=== PATIENT | female | born 1945 | race Caucasian/White ===

== ENCOUNTER 2019-01-05 12:40 | Emergency (ER) | payer MEDICARE, BC ==
[~2019-01-05] VITALS: Ht 162.6 cm; Wt 71.7 kg
[~2019-01-05 12:40] MED LIST: ALBU3IS INH; ALBU90OI INH; ALBUIS INH; ASPI81CH PO; AZIT250 PO; FLUSAL2505 INH; Flonase 0.05% N16 GM; GUAI600T33 PO; PRED10 PO; TIOT18 INH
[2019-01-05 13:25] LABS: BASOPHILS ABSOLUTE AUTO 0.08 K/mm3 (0.00-0.23); BASOPHILS PERCENT AUTO 1 % (0-2); EOSINOPHILS ABSOLUTE AUTO 0.08 K/mm3 (0.00-0.68); EOSINOPHILS PERCENT AUTO 1 % (0-6); Hematocrit 43.9 % (33.0-51.0); Hemoglobin 13.8 g/dL (11.5-16.0); IMMATURE GRAN ABSOLUTE AUTO 0.01 K/mm3 (0.00-0.10); IMMATURE GRAN PERCENT AUTO 0 % (0-1); LYMPHOCYTES ABSOLUTE AUTO 1.19 K/mm3 (0.84-5.20); LYMPHOCYTES PERCENT AUTO 16 % (21-46); MONOCYTES ABSOLUTE AUTO 0.68 K/mm3 (0.16-1.47); MONOCYTES PERCENT AUTO 9 % (4-13); Mean Corpuscular HGB 30.6 pg (26.0-34.0); Mean Corpuscular HGB Conc 31.4 g/dL (31.5-36.5); Mean Corpuscular Volume 97 fL (80-100); Mean Platelet Volume 11.1 fL (9.1-12.4); NEUTROPHILS ABSOLUTE AUTO 5.42 K/mm3 (1.96-9.15); NEUTROPHILS PERCENT AUTO 73 % (41-73); Platelet Count 283 K/mm3 (150-400); RDW Standard Deviation 46.9 fL (35.1-46.3); Red Blood Cell Count 4.51 M/mm3 (3.80-5.20); White Blood Cell Count 7.46 K/mm3 (4.00-11.30)
[2019-01-05 13:57] LABS: Troponin I <0.015 ng/mL (0.000-0.040)
[2019-01-05 14:05] LABS: Alanine Aminotransfer (ALT/SGP 19 U/L (12-78); Albumin/Globulin Ratio 1.1 (0.8-1.8); Alk Phos 67 U/L (50-136); Anion Gap 4 mmol/L (6-16); Aspartate Aminotrans (AST/SGOT 16 U/L (12-37); Bilirubin, Total 0.6 mg/dL (0.1-1.0); Blood Urea Nitrogen 14 mg/dL (8-24); Bun/Creatinine Ratio 15.8 (12.0-20.0); CO2, Blood 34 mmol/L (21-32); Calcium, Blood 9.3 mg/dL (8.5-10.1); Chloride, Blood 101 mmol/L (98-108); Creatinine, Blood 0.89 mg/dL (0.40-1.00); Globulin, Blood 3.5 g/dL (2.2-4.0); Glomerular Filtration Rate >60 (60-); Glucose, Blood 106 mg/dL (70-99); Potassium, Blood 3.6 mmol/L (3.5-5.5); Sodium, Blood 139 mmol/L (136-145); Total Protein, Blood 7.5 g/dL (6.4-8.2)
[2019-01-05 14:52] LABS: Source, Urine Clean Catch
[2019-01-05 14:56] LABS: Bilirubin, Urine Neg (Neg); Blood, Urine Neg (Neg); Glucose Qualitative, Urine Neg (Neg); Ketones, Urine Neg (Neg); Leukocyte Esterase, Urine 1+ (Neg); Nitrite, Urine Neg (Neg); Protein, Urine Neg (Neg); Urobilinogen, Urine NORM (Normal)
[2019-01-05 15:01] LABS: Appearance, Urine Clear (Clear); Color, Urine Yellow (P-Yellow)
[2019-01-05 15:02] LABS: Bacteria Few /hpf; Red Blood Cells, Urine 0-2 /hpf (0-2); Squamous Epithelial Cells Few /hpf (Few)
== END 2019-01-05 17:21 | disposition home or self-care (01) ==
LOC: ER 12:40
PROVIDERS: Emergency Medicine
DX: R00.0 Tachycardia, unspecified (principal); Z79.899 Other long term (current) drug therapy; Z79.82 Long term (current) use of aspirin; J44.9 Chronic obstructive pulmonary disease, unspecified
CPT/HCPCS: 36415; 71046; 80053; 81001; 84484; 85025; 87086; 93005; 93010; 99285-25

== ENCOUNTER → 2020-12-03 | Outpatient (CLI) | payer MEDICARE, BC ==
[~2020-12-03] MED LIST changes: +ADVAIR HFA 230-28 GM; +ALBU90OI6 INH; +Ativan1 MG PO; +Caltrate-600 W1 EACH PO; +FLUTICASONE-SA1 EAC2 INH; +LEVSOD25 PO; +LOSA50 PO
[2020-12-03 16:08] LABS: Appearance, Urine Clear (Clear); Bilirubin, Urine Neg (Neg); Blood, Urine Neg (Neg); Color, Urine Yellow (P-Yellow); Glucose Qualitative, Urine Neg (Neg); Ketones, Urine Neg (Neg); Leukocyte Esterase, Urine 1+ (Neg); Nitrite, Urine Neg (Neg); Protein, Urine Neg (Neg); Specific Gravity, Urine 1.015 (1.003-1.022); Urobilinogen, Urine NORM (Normal)
[2020-12-03 16:19] LABS: Bacteria Mod /hpf; Red Blood Cells, Urine 0-2 /hpf (0-2); Squamous Epithelial Cells Few /hpf (Few)
== END | disposition home or self-care (01) ==
LOC: LAB SHORT 14:30 → LAB 14:30
PROVIDERS: Internal Medicine
DX: N39.0 Urinary tract infection, site not specified (principal)
CPT/HCPCS: 81001; 87086

== ENCOUNTER → 2021-01-21 | Outpatient (CLI) | payer MEDICARE, BC | END | disposition home or self-care (01) | LOC: LAB SHORT 19:07 → LAB EV 19:07 | DX: N39.0 Urinary tract infection, site not specified (principal) | CPT/HCPCS: 87086 ==

== ENCOUNTER 2023-01-15 09:56 | Inpatient (IN) | payer MEDICARE, OTHER, BC ==
[~2023-01-15] VITALS: Ht 162.6 cm; Wt 64.4 kg
[2023-01-15 10:22] LABS: BASOPHILS ABSOLUTE AUTO 0.06 K/mm3 (0.00-0.23); BASOPHILS PERCENT AUTO 1 % (0-2); EOSINOPHILS ABSOLUTE AUTO 0.06 K/mm3 (0.00-0.68); EOSINOPHILS PERCENT AUTO 1 % (0-6); Hematocrit 40.6 % (33.0-51.0); IMMATURE GRAN ABSOLUTE AUTO 0.01 K/mm3 (0.00-0.10); IMMATURE GRAN PERCENT AUTO 0 % (0-1); LYMPHOCYTES ABSOLUTE AUTO 1.93 K/mm3 (0.84-5.20); LYMPHOCYTES PERCENT AUTO 24 % (21-46); MONOCYTES ABSOLUTE AUTO 0.73 K/mm3 (0.16-1.47); MONOCYTES PERCENT AUTO 9 % (4-13); Mean Corpuscular HGB 30.5 pg (26.0-34.0); Mean Corpuscular Volume 95 fL (80-100); Mean Platelet Volume 10.6 fL (9.1-12.4); NEUTROPHILS ABSOLUTE AUTO 5.21 K/mm3 (1.96-9.15); NEUTROPHILS PERCENT AUTO 65 % (41-73); Platelet Count 240 K/mm3 (150-400); RDW Coefficient Variation 13.3 % (11.7-14.2); RDW Standard Deviation 46.6 fL (35.1-46.3); Red Blood Cell Count 4.26 M/mm3 (3.80-5.20)
[2023-01-15 10:45] LABS: Albumin, Blood 3.5 g/dL (3.4-5.0); Bilirubin, Total 0.5 mg/dL (0.1-1.0); Bun/Creatinine Ratio 30.7 (12.0-20.0); Creatinine, Blood 0.68 mg/dL (0.40-1.00); Globulin, Blood 3.5 g/dL (2.2-4.0); Potassium, Blood 3.8 mmol/L (3.5-5.5)
[2023-01-15 12:28] LABS: Influenza A, PCR NEGATIVE (NEGATIVE); Influenza B, PCR NEGATIVE (NEGATIVE); Resp Syncytial Virus, PCR NEGATIVE (NEGATIVE); SARS-Cov-2 (COVID-19) PCR, MMC NEGATIVE (NEGATIVE)
[2023-01-15 15:15] LABS: International Normalized Ratio 0.96; Prothrombin Time Results 10.1 Sec (9.7-11.5)
[2023-01-15 16:32] LABS: Anti-Xa UFH, PHA Monitoring <0.10 IU/mL
--- NOTE | 2023-01-15 18:22 | NUR ---
ADMISSION/ END OF SHIFT NOTE. PT ADMITTED FROM ED INTO ROOM [id number]. PT AND FAMILY WERE ORIENTED TO ROOM AND CALL LIGHT SYSTEM. HEP GTT WAS STARTED PER PHARMACY ORDERS. LAST TROP 451, CONTINUING TO TREND. PT DENIES CP OR SOB CURRENTLY. PT WAS EDUCATED ON PT AND NEB TREATMENTS. PT TO BE NPO AT MIDNIGHT. PT IS ABLE TO MAKE NEEDS KNOWN, CALL LIGHT IS WITHIN REACH.
[2023-01-15 21:27] VITALS: BP 131/70
[2023-01-15 23:45] VITALS: BP 131/69
[2023-01-16 04:34] VITALS: BP 127/62
[2023-01-16 05:24] LABS: BASOPHILS ABSOLUTE AUTO 0.01 K/mm3 (0.00-0.23); BASOPHILS PERCENT AUTO 0 % (0-2); EOSINOPHILS PERCENT AUTO 0 % (0-6); Hematocrit 39.3 % (33.0-51.0); Hemoglobin 12.8 g/dL (11.5-16.0); IMMATURE GRAN ABSOLUTE AUTO 0.01 K/mm3 (0.00-0.10); IMMATURE GRAN PERCENT AUTO 0 % (0-1); LYMPHOCYTES ABSOLUTE AUTO 0.64 K/mm3 (0.84-5.20); LYMPHOCYTES PERCENT AUTO 12 % (21-46); MONOCYTES ABSOLUTE AUTO 0.12 K/mm3 (0.16-1.47); MONOCYTES PERCENT AUTO 2 % (4-13); Mean Corpuscular HGB 31.1 pg (26.0-34.0); Mean Corpuscular HGB Conc 32.6 g/dL (31.5-36.5); Mean Corpuscular Volume 95 fL (80-100); NEUTROPHILS ABSOLUTE AUTO 4.38 K/mm3 (1.96-9.15); NEUTROPHILS PERCENT AUTO 85 % (41-73); Platelet Count 226 K/mm3 (150-400); RDW Coefficient Variation 13.3 % (11.7-14.2); RDW Standard Deviation 46.6 fL (35.1-46.3); Red Blood Cell Count 4.12 M/mm3 (3.80-5.20); White Blood Cell Count 5.16 K/mm3 (4.00-11.30)
[2023-01-16 05:53] LABS: Alanine Aminotransfer (ALT/SGP 19 U/L (12-78); Albumin, Blood 3.4 g/dL (3.4-5.0); Alk Phos 47 U/L (50-136); Anion Gap 0 mmol/L (6-16); Aspartate Aminotrans (AST/SGOT 22 U/L (12-37); Bilirubin, Total 0.4 mg/dL (0.1-1.0); Blood Urea Nitrogen 17 mg/dL (8-24); Bun/Creatinine Ratio 30.7 (12.0-20.0); CHOL/HDL RATIO 1.7; CO2, Blood 33 mmol/L (21-32); Calcium, Blood 8.8 mg/dL (8.5-10.1); Chloride, Blood 101 mmol/L (98-108); Cholesterol 168 mg/dL (50-200); Creatinine, Blood 0.55 mg/dL (0.40-1.00); Globulin, Blood 3.4 g/dL (2.2-4.0); Glomerular Filtration Rate 95 (60-); Glucose, Blood 138 mg/dL (70-99); HDL Cholesterol 99 mg/dL (>39); LDL/HDL RATIO 0.6; Low Density Lipoprotein Chol 62 mg/dL (0-110); Potassium, Blood 4.1 mmol/L (3.5-5.5); Sodium, Blood 134 mmol/L (136-145); Total Protein, Blood 6.8 g/dL (6.4-8.2); Triglycerides 36 mg/dL (30-160); Very Low Density Lipoprot Chol 7 mg/dL (6-32)
--- NOTE | 2023-01-16 06:02 | NUR ---
Assumed care of pt at 1900. A/Ox4, cooperative with care and calls appropiately. Maintains above 92% on 4L NC but does desat into low 80's with talking or exerting self, recovers within 1-2 minutes. LS clear on top and dim at bases. SR on tele 70's, denies any CP/pressure, VSS. Will report to dayshift RN.
[2023-01-16 07:40] VITALS: BP 126/69
--- NOTE | 2023-01-16 11:40 | NUR ---
CARE ASSUMPTION This RN assumed care at 0700. vital signs stable. tele sinus rhythm 70s. spo2 >90% on 4l nc. patient is alert and oriented x4. neuro is intact. patient reports no chest pain/pressure. patient reports no pain. patient reports no shortness of breath. skin is clean dry and intact. patient is contient of bowels and urine. see shift assessment further detials. Md Wood and medical team in to see patient this AM. Heparin stopped and discontinued per MD order. Discussed plan of care. Plan of care is up to date. patient started on lasix today. see orders. Patient is a one person assist to bedside comode. Plan of care is up to date and call light within reach. Family and updated on plan and verbalized understanding.
[2023-01-16 11:48] VITALS: BP 133/73
[2023-01-16 15:53] VITALS: BP 128/58
--- NOTE | 2023-01-16 18:17 | NUR ---
SHIFT SUMMARY Patient neuro is intact and remains unchaged. vital sings remained stable throughout this RN's shift. Patient uses call light appropriately to make needs known. Patient has remained chest pain/pressure free. Patient has remained pain free. Patient calls when she feel short of breaht for a breathing treatment. Assessment remains the same. Plan is to diuersis patient, and patient started on lasix per orders. See orders. no acute changes this shift. call light within reach, bed in lowest position, and is at bedside.
[2023-01-16 21:15] VITALS: BP 133/71
[2023-01-16 23:36] VITALS: BP 149/68
[2023-01-17 04:54] VITALS: BP 134/66
--- NOTE | 2023-01-17 05:06 | NUR ---
Patient was able to sleep most of this shift. C/o mild headache, medicated per emar with good relief. Able to titrate O2 down to 3L this shift and maintains sats above 92%. Still some CORONA, although less than previous night. SR 70's on tele, denies CP/pressure, VSS. Very good urine output of clear/yellow urine - please see I/O's. No acute changes, will report to dayshift RN.
[2023-01-17 07:17] VITALS: BP 130/70
[2023-01-17 08:42] LABS: Bun/Creatinine Ratio 40.6 (12.0-20.0); Calcium, Blood 8.8 mg/dL (8.5-10.1); Creatinine, Blood 0.62 mg/dL (0.40-1.00); Potassium, Blood 3.9 mmol/L (3.5-5.5)
[2023-01-17 11:20] VITALS: BP 121/80
[2023-01-17 14:31] VITALS: BP 133/84
--- NOTE | 2023-01-17 14:37 | NUR ---
SHIFT SUMMARY/TRANSFER PT UP TO MEDICAL FLOOR @ APPROX 1430. PT A/O X4, PLEASANT AND COOPERATIVE WITH CARE. PT SINUS RHYTHM ON TELE, WITH RATE IN THE 70'S. PT C/O SOB WITH ANY EXERTION. SPO2 IS >92% ON 2LPM AT REST. PT WILL DROP TO HIGH 80'S WITH ACTIVITY BUT RECOVERS QUICKLY. LUNGS ARE MILDLY COARSE T/O. SHE HAS AN OCCASIONAL PRODUCTIVE COUGH AND BEGAN USING A FLUTTER VALVE TODAY. PT C/O OF STRONG SMELLING URINE. A URINALYSIS WAS ORDERED. OVERALL, NO ACUTE CHANGES WITH PT THIS SHIFT.
[2023-01-17 14:45] LABS: Source, Urine Clean Catch
[2023-01-17 14:51] LABS: Appearance, Urine Clear (Clear); Bilirubin, Urine Neg (Neg); Blood, Urine Neg (Neg); Color, Urine Yellow (P-Yellow); Glucose Qualitative, Urine Neg (Neg); Ketones, Urine Neg (Neg); Leukocyte Esterase, Urine Neg (Neg); Nitrite, Urine Neg (Neg); Protein, Urine Neg (Neg); Specific Gravity, Urine 1.015 (1.003-1.022); Urobilinogen, Urine NORM (Normal)
--- NOTE | 2023-01-17 15:23 | NUR ---
PT ARRIVED TO ROOM AT 1445 ON 2.5L O2. PT IS A ONE ASSIST FROM CHAIR TO BED. PT GETS SOB WITH MOVEMENT. AOX4 AND COOPERATIVE OF CARE AT THIS TIME. BIOX WAS SET UP IN ROOM AND CALL LIGHT PLACED WITHIN REACH WILL CONTINUE TO MONITOR.
[2023-01-17 16:14] VITALS: BP 135/77
--- NOTE | 2023-01-17 16:30 | NUR ---
PT HAS HAD NO ACUTE CHANGES AOX4 AND COOPERATIVE OF CARE. CALL LIGHT IS WITHIN REACH WILL CONTINUE TO MONITOR.
[2023-01-17 19:34] VITALS: BP 139/67
[2023-01-18 03:55] VITALS: BP 120/53
--- NOTE | 2023-01-18 04:31 | NUR ---
SHIFT SUMMARY PATIENT HAD NO ACUTE CHANGES. AXOX 4 AND SBA TO BR. ON 2.5 L O2 NC AND 2L O2 BASELINE. RT IN FOR BREATHING TX. DENIES CHEST PAIN AND N/V. PIV REMAINS INTACT. IV SOLU-MEDROL GIVEN PER EMAR. VSS/AFEBRILE. TELE MONITOR NSR @ 88. COOPERATIVE WITH CARE. CALL LIGHT IN REACH. BED IN LOWEST POSITION. WILL CONTINUE TO MONITOR UNTIL DAY SHIFT NURSE ASSUMES CARE.
[2023-01-18 05:27] LABS: Bun/Creatinine Ratio 42.8 (12.0-20.0); Calcium, Blood 8.5 mg/dL (8.5-10.1); Creatinine, Blood 0.68 mg/dL (0.40-1.00); Magnesium, Blood 2.5 mg/dL (1.6-2.4); Potassium, Blood 3.9 mmol/L (3.5-5.5)
[2023-01-18 07:23] VITALS: BP 144/77
[2023-01-18 14:57] VITALS: BP 128/84
--- NOTE | 2023-01-18 17:10 | NUR ---
PT HAS HAD NO ACUTE CHANGES AOX4 AND COOPERATIVE OF CARE. PT STILL SEEMS TO HAVE ANXIETY ABOUT O2 NEEDS. PT WAS TURNED DOWN TO 2L AT THIS TIME AND HAS BEEN LOW 90s. PT WORKED WELL WITH PHYSICAL THERAPY AND WAS ABLE TO GO FOR A WALK IN [place] WITH HER. PT HAS CALL LIGHT WITHIN REACH AND IS ABLE TO MAKE NEEDS KNOWN. PT PREFERS TO HAVE SOMEONE WALK WITH HER TO RESTROOM. NO DISTRESS NOTED AT THIS TIME WILL CONTINUE TO MONITOR.
[2023-01-18 19:17] VITALS: BP 148/72
[2023-01-19 04:21] VITALS: BP 124/66
--- NOTE | 2023-01-19 04:26 | NUR ---
SHIFT SUMMARY PATIENT HAD NO ACUTE CHANGES. AXO X4 AND SBA TO BR. ON 2L O2 NC AND BASELINE. PIV REMAINS INTACT. IV SOLU MEDROL GIVEN PER EMAR. SPOUSE PRESENT FOR A FEW HOURS. PATIENT ANXIOUS WHEN AWAKE. TELE MONITOR NSR @ 83. DENIES CHEST PAIN AND N/V. COOPERATIVE WITH CARE. CALL LIGHT IN REACH. BED IN LOWEST POSITION. WILL CONTINUE TO MONITOR UNTIL DAY SHIFT NURSE ASSUMES CARE.
[2023-01-19 05:02] LABS: BASOPHILS ABSOLUTE AUTO 0.01 K/mm3 (0.00-0.23); BASOPHILS PERCENT AUTO 0 % (0-2); EOSINOPHILS PERCENT AUTO 0 % (0-6); Hemoglobin 12.8 g/dL (11.5-16.0); IMMATURE GRAN ABSOLUTE AUTO 0.03 K/mm3 (0.00-0.10); IMMATURE GRAN PERCENT AUTO 0 % (0-1); LYMPHOCYTES ABSOLUTE AUTO 0.64 K/mm3 (0.84-5.20); LYMPHOCYTES PERCENT AUTO 6 % (21-46); MONOCYTES ABSOLUTE AUTO 0.48 K/mm3 (0.16-1.47); MONOCYTES PERCENT AUTO 5 % (4-13); Mean Corpuscular HGB 30.3 pg (26.0-34.0); Mean Corpuscular Volume 95 fL (80-100); NEUTROPHILS ABSOLUTE AUTO 8.81 K/mm3 (1.96-9.15); NEUTROPHILS PERCENT AUTO 88 % (41-73); Platelet Count 250 K/mm3 (150-400); RDW Coefficient Variation 13.4 % (11.7-14.2); RDW Standard Deviation 46.9 fL (35.1-46.3); Red Blood Cell Count 4.22 M/mm3 (3.80-5.20); White Blood Cell Count 9.97 K/mm3 (4.00-11.30)
[2023-01-19 05:36] LABS: Anion Gap Unable to Calculate mmol/L (6-16); Blood Urea Nitrogen 24 mg/dL (8-24); Bun/Creatinine Ratio 39.3 (12.0-20.0); CO2, Blood 37 mmol/L (21-32); Calcium, Blood 8.6 mg/dL (8.5-10.1); Chloride, Blood 99 mmol/L (98-108); Creatinine, Blood 0.61 mg/dL (0.40-1.00); Glomerular Filtration Rate 93 (60-); Glucose, Blood 142 mg/dL (70-99); Potassium, Blood 3.9 mmol/L (3.5-5.5); Sodium, Blood 134 mmol/L (136-145)
[2023-01-19 08:03] VITALS: BP 132/71
[2023-01-19] MEDS ORDERED: ASPI81CH PO (12:49)
[2023-01-19] MEDS ORDERED: ATOR40TA PO (12:49)
[2023-01-19] MEDS ORDERED: FURO20 PO (12:49)
[2023-01-19] MEDS ORDERED: PRED20 PO (12:50)
[2023-01-19] MEDS ORDERED: AZIT500 PO (12:50)
[2023-01-19] MEDS ORDERED: IPRAT-ALBUT 0.5-3 ML INH (12:51)
--- NOTE | 2023-01-19 14:57 | NUR ---
DISCHARGE SUMMARY EDUCATION PACKET PROVED TO PATIENT AND . ALL QUESTIONS ANSWERED. IV REMOVED. SIGNATURES OBTAINED AT 1415. PATIENT LEFT FLOOR IN WHEELCHAIR WITH COUNSELING CASE MANAGERMAURICE AT 1425. LEAVING PRIVATE VEHICLE WITH .
--- NOTE | 2023-01-19 15:37 | NUR ---
THIS SPORT INTERN HAS REVIEWED AND AGREES WITH NOTES AND ASSESSMENTS BY OLAYINKA SAKSHI.
== END 2023-01-19 14:22 | disposition home or self-care (01) | DRG 280 ==
LOC: ER 09:56 → PCU 14:08 → MEDS 14:08 → PCU 15:55 → MEDS 01-17 14:27
PROVIDERS: Emergency Medicine; Family Medicine; Pharmacist; Student in an Organized Health Care Education/Training Program; ADMIT Hospitalist
DX: I11.0 Hypertensive heart disease with heart failure (principal); J96.21 Acute and chronic respiratory failure with hypoxia; I21.A1 Myocardial infarction type 2; E87.3 Alkalosis; E87.1 Hypo-osmolality and hyponatremia; J44.1 Chronic obstructive pulmonary disease with (acute) exacerbation; I50.32 Chronic diastolic (congestive) heart failure; Z20.822 Contact with and (suspected) exposure to COVID-19; E03.9 Hypothyroidism, unspecified; M81.0 Age-related osteoporosis without current pathological fracture; R91.1 Solitary pulmonary nodule; F41.1 Generalized anxiety disorder; I50.810 Right heart failure, unspecified; I27.20 Pulmonary hypertension, unspecified; Z87.891 Personal history of nicotine dependence; Z99.81 Dependence on supplemental oxygen; Z79.51 Long term (current) use of inhaled steroids; Z79.890 Hormone replacement therapy; Z79.899 Other long term (current) drug therapy
CPT/HCPCS: 0241U; 36415; 71046; 71260; 80048; 80053; 80061; 81003; 83036; 83735; 83880; 84484; 85025; 85520; 85610; 85730; 93005; 93010; 93306; 94640; 94664; 94760; 94762; 96374; 97110; 97162; 97530; 99285-25; A9270; J1100; J1644; J1650; J1940; J2405; J2930; Q9967

== ENCOUNTER 2023-05-08 14:39 | Inpatient (IN) | payer MEDICARE, OTHER, BC ==
[~2023-05-08] VITALS: Ht 162.6 cm; Wt 60.9 kg
[~2023-05-08 14:39] MED LIST changes: +ATOR40TA PO; +AZIT500 PO; +FURO20 PO; +IPRAT-ALBUT 0.5-3 ML INH; +PRED20 PO
[2023-05-08 15:08] LABS: BASOPHILS ABSOLUTE AUTO 0.05 K/mm3 (0.00-0.23); BASOPHILS PERCENT AUTO 0 % (0-2); EOSINOPHILS PERCENT AUTO 0 % (0-6); Hematocrit 41.7 % (33.0-51.0); Hemoglobin 13.5 g/dL (11.5-16.0); IMMATURE GRAN ABSOLUTE AUTO 0.06 K/mm3 (0.00-0.10); IMMATURE GRAN PERCENT AUTO 0 % (0-1); LYMPHOCYTES ABSOLUTE AUTO 0.82 K/mm3 (0.84-5.20); LYMPHOCYTES PERCENT AUTO 5 % (21-46); MONOCYTES ABSOLUTE AUTO 1.02 K/mm3 (0.16-1.47); MONOCYTES PERCENT AUTO 7 % (4-13); Mean Corpuscular HGB 30.4 pg (26.0-34.0); Mean Corpuscular HGB Conc 32.4 g/dL (31.5-36.5); Mean Corpuscular Volume 94 fL (80-100); NEUTROPHILS ABSOLUTE AUTO 13.22 K/mm3 (1.96-9.15); NEUTROPHILS PERCENT AUTO 87 % (41-73); Platelet Count 223 K/mm3 (150-400); RDW Coefficient Variation 13.3 % (11.7-14.2); RDW Standard Deviation 45.9 fL (35.1-46.3); Red Blood Cell Count 4.44 M/mm3 (3.80-5.20); White Blood Cell Count 15.17 K/mm3 (4.00-11.30)
[2023-05-08 15:27] LABS: Albumin/Globulin Ratio 1.1 (0.8-1.8); Bilirubin, Total 0.8 mg/dL (0.1-1.0); Bun/Creatinine Ratio 26.5 (12.0-20.0); Calcium, Blood 8.8 mg/dL (8.5-10.1); Creatinine, Blood 0.6 mg/dL (0.40-1.00); Globulin, Blood 3.5 g/dL (2.2-4.0); Potassium, Blood 3.8 mmol/L (3.5-5.5); Total Protein, Blood 7.5 g/dL (6.4-8.2)
[2023-05-08 17:41] LABS: Base Excess Venous 8.6 mmol/L; Bicarbonate Venous 31.1 mmol/L (24.0-30.0); PCO2 Venous 44.3 mmHg (38-42); pH Blood Venous 7.47 (7.34-7.37)
[2023-05-08 18:29] LABS: Influenza A, PCR NEGATIVE (NEGATIVE); Influenza B, PCR NEGATIVE (NEGATIVE); Resp Syncytial Virus, PCR NEGATIVE (NEGATIVE); SARS-Cov-2 (COVID-19) PCR, MMC NEGATIVE (NEGATIVE)
[2023-05-08] MEDS ORDERED: GUAI600T33 PO (20:42)
[2023-05-08] MEDS ORDERED: FLUT1DIS5 INH (20:44)
--- NOTE | 2023-05-08 23:26 | NUR ---
PT CHART REVIEWED FOR ADMIT
[2023-05-08] MEDS ORDERED: AMLODIPINE BES2.5 MG PO (23:29)
[2023-05-09 00:29] LABS: Hematocrit 40.1 % (33.0-51.0); Hemoglobin 13.2 g/dL (11.5-16.0); Mean Corpuscular HGB 30.7 pg (26.0-34.0); Mean Corpuscular HGB Conc 32.9 g/dL (31.5-36.5); Mean Corpuscular Volume 93 fL (80-100); Mean Platelet Volume 11.8 fL (9.1-12.4); Platelet Count 222 K/mm3 (150-400); RDW Coefficient Variation 13.5 % (11.7-14.2); RDW Standard Deviation 46.5 fL (35.1-46.3); White Blood Cell Count 15.03 K/mm3 (4.00-11.30)
[2023-05-09 00:39] LABS: Bun/Creatinine Ratio 22.1 (12.0-20.0); Calcium, Blood 8.5 mg/dL (8.5-10.1); Creatinine, Blood 0.59 mg/dL (0.40-1.00); Magnesium, Blood 1.9 mg/dL (1.6-2.4); Potassium, Blood 3.7 mmol/L (3.5-5.5)
[2023-05-09 01:30] VITALS: BP 130/65
--- NOTE | 2023-05-09 02:10 | NUR ---
LATE ENTRY/ER ADMIT 0100: RECEIVED REPORT FROM NET WEB DEVELOPER. 0120: RECEIVED PT FROM ER VIA GURNEY TRANSFER. PT PLACED SELF IN BED, MADE COMFORTABLE, ORIENTED TO ROOM & UNIT ROUTINE. PT A&O X 4, PLEASANT & COOPERATIVE WITH ALL CARE. IS ON 2 L'S VIA N/C SATS >90%, NO DYSPNEA AT THIS TIME. PT ABLE TO TALK IN FULL SENTENCES WITHOUT SOB. IVF'S INFUSING AT 125/HR. ASSESSMENT DONE. PT RESTING COMFORTABLY, RESP EVEN & UNLABORED. BED IN LOW POSITION, CALL LIGHT WITHIN REACH.
--- NOTE | 2023-05-09 05:35 | NUR ---
SHIFT SUMMARY HAS RESTED QUIETLY SINCE ADMISSION WITH EYES CLOSED, RESP EVEN & UNLABORED. REMAINS ON 2 L'S O2 VIA NC. SATS >90%. NO COMPLAINTS, DENIES PAIN & SOB. IS PLEASANT & COOPERATIVE WITH ALL CARE. BED IN LOW POSITION, CALL LIGHT WITHIN REACH.
[2023-05-09 07:15] VITALS: BP 107/49
[2023-05-09 07:18] VITALS: BP 116/55
[2023-05-09] MEDS ORDERED: Mucinex600 MG PO (08:54)
[2023-05-09] MEDS ORDERED: FLUTICASONE-SA1 EAC1 INH (08:56)
[2023-05-09 13:55] VITALS: BP 117/48
--- NOTE | 2023-05-09 20:01 | NUR ---
SHIFT SUMMARY NO ACUTE EVENTS DURING SHIFT. PATIENT UP TO BATHROOM AD BOB WITH 2LPM O2. BED IN LOW POSITION, CALL LIGHT IN REACH. PATIENT CALLS APPROPRIATELY.
[2023-05-09 20:06] VITALS: BP 102/74
--- NOTE | 2023-05-10 01:14 | NUR ---
RN NOTE MS CANSECO WAS EDUCATED RE IGNITION SOURCES AND RISK FOR INJURY WHEN OXYGEN IS IN USE. SHE VERBALISED UNDERSTANDING AND DENIED HAVING IGNITION SOURCES. REASSESSMENT ON NURSING ROUNDS. ON 2L N/C OXYGEN AT BASELINE WHICH CONTINUES ON 2-2.5L. PT EDUCATED IN HER CARE AND INTERESTED IN ALL EDUCATION AND INFORMATION INVOLVING HER CARE. UP INDEPENDENTLY TO THE BATHROOM, STEADY GAIT. BED LOW, CALL LIGHT IN REACH.
[2023-05-10 04:28] VITALS: BP 125/64
--- NOTE | 2023-05-10 04:52 | NUR ---
SHIFT SUMMARY MS CANSECO WAS DIDN'T SLEEP MUCH LAST NIGHT, BUT SAID SHE IS "DOING FINE", NO C/O PAIN, SAID THAT SHE HAD MINIMAL SOB GETTING UP TO THE BATHROOM OVERNIGHT. NO INCREASED OXYGEN REQUIREMENTS. BED LOW, CALL LIGHT IN REACH.
[2023-05-10 05:00] LABS: Hematocrit 35.4 % (33.0-51.0); Hemoglobin 11.3 g/dL (11.5-16.0); Mean Corpuscular HGB 30.4 pg (26.0-34.0); Mean Corpuscular HGB Conc 31.9 g/dL (31.5-36.5); Mean Corpuscular Volume 95 fL (80-100); Mean Platelet Volume 11.5 fL (9.1-12.4); Platelet Count 207 K/mm3 (150-400); RDW Coefficient Variation 13.8 % (11.7-14.2); RDW Standard Deviation 48.4 fL (35.1-46.3); Red Blood Cell Count 3.72 M/mm3 (3.80-5.20); White Blood Cell Count 10.32 K/mm3 (4.00-11.30)
[2023-05-10 05:25] LABS: Albumin, Blood 3.1 g/dL (3.4-5.0); Bilirubin, Total 0.2 mg/dL (0.1-1.0); Bun/Creatinine Ratio 24.5 (12.0-20.0); Calcium, Blood 8.3 mg/dL (8.5-10.1); Creatinine, Blood 0.7 mg/dL (0.40-1.00); Globulin, Blood 3.1 g/dL (2.2-4.0); Potassium, Blood 3.9 mmol/L (3.5-5.5); Total Protein, Blood 6.2 g/dL (6.4-8.2)
[2023-05-10 07:49] VITALS: BP 110/58
[2023-05-10 15:49] VITALS: BP 130/60
--- NOTE | 2023-05-10 19:59 | NUR ---
PT PLEASANT TODAY. LUNGS TIGHT, BUT CLEAR, DID TURN UP TO 3L O2 THIS AFT DESATTED AFTER RUN TO BATHROOM. TURNED BACK DOWN THIS LEO TO 2L. PT ABIMAEL WELL. IS CONCERNED IT CAUSES HER HEADACHE WHEN GETS TOO MUCH O2, AND HS BEEN CHECKING REGULARLY AND IS UP AT 98-99 %. PLEASED TO GET TURNED DOWN. NO OTHER CONCERNS NOTED. BED IN LOW POSITOIN, CALL LITE IN REACH, CALLS APPORP
[2023-05-10 20:03] VITALS: BP 123/58
[2023-05-10 22:02] LABS: Adenovirus Not Detected (NOT DETECT); Bordetella pertussis Not Detected (NOT DETECT); Chlamydophila pneumoniae Not Detected (NOT DETECT); Coronavirus 229E Not Detected (NOT DETECT); Coronavirus HKU1 Not Detected (NOT DETECT); Coronavirus NL63 Not Detected (NOT DETECT); Coronavirus OC43 Not Detected (NOT DETECT); Human Metapneumovirus Not Detected (NOT DETECT); Human Rhinovirus/Enterovirus Not Detected (NOT DETECT); Influenza A/2009-H1 Not Detected (NOT DETECT); Influenza A/H1 Not Detected (NOT DETECT); Influenza A/H3 Not Detected (NOT DETECT); Influenza B Not Detected (NOT DETECT); Mycoplasma pneumoniae Not Detected (NOT DETECT); Parainfluenza Virus 1 Not Detected (NOT DETECT); Parainfluenza Virus 2 Not Detected (NOT DETECT); Parainfluenza Virus 3 Not Detected (NOT DETECT); Parainfluenza Virus 4 Not Detected (NOT DETECT); Respiratory Syncytial Virus Not Detected (NOT DETECT); SARS-Cov-2 (COVID-19), BioFire Not Detected (NOT DETECT)
[2023-05-10 23:50] LABS: Source, Urine Clean Catch
[2023-05-10 23:53] LABS: Bilirubin, Urine Neg (Neg); Blood, Urine Neg (Neg); Glucose Qualitative, Urine 1+ (Neg); Ketones, Urine Neg (Neg); Leukocyte Esterase, Urine Neg (Neg); Nitrite, Urine Neg (Neg); Protein, Urine 1+ (Neg); Specific Gravity, Urine 1.015 (1.003-1.022); Urobilinogen, Urine NORM (Normal)
[2023-05-10 23:55] LABS: Appearance, Urine Clear (Clear); Color, Urine Yellow (P-Yellow)
[2023-05-11 05:25] VITALS: BP 128/66
[2023-05-11 05:48] LABS: Hematocrit 37.3 % (33.0-51.0); Hemoglobin 11.5 g/dL (11.5-16.0); Mean Corpuscular HGB 30.3 pg (26.0-34.0); Mean Corpuscular HGB Conc 30.8 g/dL (31.5-36.5); Mean Corpuscular Volume 98 fL (80-100); Mean Platelet Volume 11.6 fL (9.1-12.4); Platelet Count 235 K/mm3 (150-400); RDW Coefficient Variation 13.9 % (11.7-14.2); RDW Standard Deviation 50.4 fL (35.1-46.3); Red Blood Cell Count 3.79 M/mm3 (3.80-5.20); White Blood Cell Count 8.21 K/mm3 (4.00-11.30)
[2023-05-11 06:14] LABS: Creatinine, Blood 0.6 mg/dL (0.40-1.00); Potassium, Blood 4.2 mmol/L (3.5-5.5)
[2023-05-11 06:28] LABS: BASOPHILS PERCENT MAN 0 % (0-2); EOSINOPHILS PERCENT MAN 0 % (0-6); LYMPHOCYTES ABSOLUTE MAN 0.32 K/mm3 (0.84-5.20); LYMPHOCYTES PERCENT MAN 4 % (21-46); MONOCYTES ABSOLUTE MAN 0.16 K/mm3 (0.16-1.47); MONOCYTES PERCENT MAN 2 % (4-13); NEUTROPHILS ABSOLUTE MAN 7.71 K/mm3 (1.96-9.15); SEG NEUTROPHILS PERCENT MAN 94 % (41-73); TOTAL CELLS COUNTED 100
--- NOTE | 2023-05-11 06:35 | NUR ---
SHIFT SUMMARY PT C/O HEADACHE STILL PRESENT DUE TO HER O2 BEING TURNED UP PREVIOUSLY DURING THE DAY. PRN TYLENOL GIVEN PER REQUEST WITH RESOLUTION OF HEADACHE. NO OTHER EVENTS OVERNIGHT. Q1H FIRE SAFETY CHECKS COMPLETED, NO IGNITION SOURCES FOUND
[2023-05-11 07:31] VITALS: BP 122/61
[2023-05-11] MEDS ORDERED: AZIT500 PO (12:24)
[2023-05-11] MEDS ORDERED: PRED20 PO (12:39)
--- NOTE | 2023-05-11 13:29 | NUR ---
DISCHARGE REVIEWED WITH PT AND SPOUSE. VERBALIZED UNDERSTANDING MEDS AND INST. IV PULLED BY AIDE, NO TELE. PT WHEELED TO DOOR AT 1327
== END 2023-05-11 14:40 | disposition home or self-care (01) | DRG 193 ==
LOC: ER 14:39 → MEDS 14:40 → ENPENDDIS 05-11 10:48 → MEDS 05-11 14:40
PROVIDERS: Hospitalist; Internal Medicine; Nurse Practitioner Acute Care; Physician Assistant; Student in an Organized Health Care Education/Training Program; ADMIT Internal Medicine
DX: J18.9 Pneumonia, unspecified organism (principal); J96.01 Acute respiratory failure with hypoxia; J44.1 Chronic obstructive pulmonary disease with (acute) exacerbation; E87.3 Alkalosis; R65.10 Systemic inflammatory response syndrome (SIRS) of non-infectious origin without acute organ dysfunction; J44.0 Chronic obstructive pulmonary disease with (acute) lower respiratory infection; I10 Essential (primary) hypertension; E03.9 Hypothyroidism, unspecified; M81.0 Age-related osteoporosis without current pathological fracture; Z20.822 Contact with and (suspected) exposure to COVID-19; F41.1 Generalized anxiety disorder; F17.210 Nicotine dependence, cigarettes, uncomplicated; Z79.51 Long term (current) use of inhaled steroids; Z79.890 Hormone replacement therapy; Z79.899 Other long term (current) drug therapy; Z79.82 Long term (current) use of aspirin; Z79.2 Long term (current) use of antibiotics
CPT/HCPCS: 0202U; 0241U; 36415; 71046; 80048; 80053; 82803; 83605; 83735; 83880; 84145; 84484; 85025; 85027; 87040; 93005; 93010; 94640; 94664; 94760; 96361; 96365; 96366; 96367; 96372; 96375; 96376; 99285-25; A9270; G0378; J0456; J0696; J1650; J2930; J7050; J7120

== ENCOUNTER 2023-07-31 10:51 | Emergency (ER) | payer MEDICARE, BC, OTHER ==
[~2023-07-31] VITALS: Ht 162.6 cm; Wt 61.2 kg
[~2023-07-31 10:51] MED LIST changes: +AMLODIPINE BES2.5 MG PO; +FLUT1DIS5 INH; +FLUTICASONE-SA1 EAC1 INH; +Mucinex600 MG PO
[2023-07-31 12:02] LABS: BASOPHILS ABSOLUTE AUTO 0.04 K/mm3 (0.00-0.23); BASOPHILS PERCENT AUTO 1 % (0-2); EOSINOPHILS ABSOLUTE AUTO 0.01 K/mm3 (0.00-0.68); EOSINOPHILS PERCENT AUTO 0 % (0-6); Hematocrit 39.3 % (33.0-51.0); Hemoglobin 12.4 g/dL (11.5-16.0); IMMATURE GRAN ABSOLUTE AUTO 0.01 K/mm3 (0.00-0.10); IMMATURE GRAN PERCENT AUTO 0 % (0-1); LYMPHOCYTES ABSOLUTE AUTO 0.78 K/mm3 (0.84-5.20); LYMPHOCYTES PERCENT AUTO 9 % (21-46); MONOCYTES ABSOLUTE AUTO 0.42 K/mm3 (0.16-1.47); MONOCYTES PERCENT AUTO 5 % (4-13); Mean Corpuscular HGB 30.4 pg (26.0-34.0); Mean Corpuscular HGB Conc 31.6 g/dL (31.5-36.5); Mean Corpuscular Volume 96 fL (80-100); Mean Platelet Volume 11.3 fL (9.1-12.4); NEUTROPHILS ABSOLUTE AUTO 7.21 K/mm3 (1.96-9.15); NEUTROPHILS PERCENT AUTO 85 % (41-73); Platelet Count 203 K/mm3 (150-400); RDW Coefficient Variation 13.3 % (11.7-14.2); RDW Standard Deviation 47.8 fL (35.1-46.3); Red Blood Cell Count 4.08 M/mm3 (3.80-5.20); White Blood Cell Count 8.47 K/mm3 (4.00-11.30)
[2023-07-31 12:15] VITALS: BP 128/60
[2023-07-31 12:22] LABS: Albumin, Blood 3.5 g/dL (3.4-5.0); Albumin/Globulin Ratio 1.2 (0.8-1.8); Bilirubin, Total 0.7 mg/dL (0.1-1.0); Calcium, Blood 8.6 mg/dL (8.5-10.1); Creatinine, Blood 0.7 mg/dL (0.40-1.00); Potassium, Blood 3.9 mmol/L (3.5-5.5); Total Protein, Blood 6.5 g/dL (6.4-8.2)
[2023-07-31 12:38] LABS: Influenza A, PCR NEGATIVE (NEGATIVE); Influenza B, PCR NEGATIVE (NEGATIVE); Resp Syncytial Virus, PCR NEGATIVE (NEGATIVE); SARS-Cov-2 (COVID-19) PCR, MMC NEGATIVE (NEGATIVE)
[2023-07-31] MEDS ORDERED: PRED20 PO (13:40)
[2023-07-31] MEDS ORDERED: DOXY100 PO (13:40)
== END 2023-07-31 14:00 | disposition home or self-care (01) ==
LOC: ER 10:51
PROVIDERS: Emergency Medicine
DX: J20.9 Acute bronchitis, unspecified (principal); J44.1 Chronic obstructive pulmonary disease with (acute) exacerbation; I10 Essential (primary) hypertension; E03.9 Hypothyroidism, unspecified; Z20.822 Contact with and (suspected) exposure to COVID-19; Z88.8 Allergy status to other drugs, medicaments and biological substances; Z79.82 Long term (current) use of aspirin; Z79.52 Long term (current) use of systemic steroids; Z79.899 Other long term (current) drug therapy; Z87.891 Personal history of nicotine dependence
CPT/HCPCS: 0241U; 71046; 80053; 84145; 84484; 85025; 93005; 93010; 94640; 94664; 99284-25; A9270

== ENCOUNTER 2023-09-07 15:15 | Emergency (ER) | payer MEDICARE, BC, OTHER ==
[~2023-09-07] VITALS: Ht 162.6 cm; Wt 60.8 kg
[~2023-09-07 15:15] MED LIST changes: +DOXY100 PO
[2023-09-07 15:43] VITALS: BP 173/87
[2023-09-07] MEDS ORDERED: Norco 5-325 Ta1 EACH PO (16:59)
== END 2023-09-07 17:38 | disposition home or self-care (01) ==
LOC: ER 15:15
DX: M54.2 Cervicalgia (principal); M79.601 Pain in right arm; I10 Essential (primary) hypertension; E03.9 Hypothyroidism, unspecified; M81.0 Age-related osteoporosis without current pathological fracture; J44.9 Chronic obstructive pulmonary disease, unspecified; Z99.81 Dependence on supplemental oxygen; Z87.891 Personal history of nicotine dependence; Z79.52 Long term (current) use of systemic steroids; Z79.2 Long term (current) use of antibiotics; Z79.82 Long term (current) use of aspirin; Z79.51 Long term (current) use of inhaled steroids; Z79.899 Other long term (current) drug therapy
CPT/HCPCS: 72040; 99283-25; A9270

== ENCOUNTER 2023-10-10 22:20 | Emergency (ER) | payer MEDICARE, BC, OTHER ==
[~2023-10-10] VITALS: Ht 162.6 cm; Wt 59.0 kg
[~2023-10-10 22:20] MED LIST changes: +Norco 5-325 Ta1 EACH PO
[2023-10-10 23:12] LABS: BASOPHILS ABSOLUTE AUTO 0.05 K/mm3 (0.00-0.23); BASOPHILS PERCENT AUTO 0 % (0-2); EOSINOPHILS PERCENT AUTO 0 % (0-6); Hematocrit 39.6 % (33.0-51.0); Hemoglobin 12.8 g/dL (11.5-16.0); IMMATURE GRAN ABSOLUTE AUTO 0.03 K/mm3 (0.00-0.10); IMMATURE GRAN PERCENT AUTO 0 % (0-1); LYMPHOCYTES ABSOLUTE AUTO 1.97 K/mm3 (0.84-5.20); LYMPHOCYTES PERCENT AUTO 17 % (21-46); MONOCYTES ABSOLUTE AUTO 1.04 K/mm3 (0.16-1.47); MONOCYTES PERCENT AUTO 9 % (4-13); Mean Corpuscular HGB 30.7 pg (26.0-34.0); Mean Corpuscular HGB Conc 32.3 g/dL (31.5-36.5); Mean Corpuscular Volume 95 fL (80-100); Mean Platelet Volume 11.2 fL (9.1-12.4); NEUTROPHILS ABSOLUTE AUTO 8.22 K/mm3 (1.96-9.15); NEUTROPHILS PERCENT AUTO 73 % (41-73); Platelet Count 237 K/mm3 (150-400); RDW Coefficient Variation 13.8 % (11.7-14.2); RDW Standard Deviation 48.5 fL (35.1-46.3); Red Blood Cell Count 4.17 M/mm3 (3.80-5.20); White Blood Cell Count 11.31 K/mm3 (4.00-11.30)
[2023-10-10 23:24] LABS: Albumin, Blood 3.7 g/dL (3.4-5.0); Albumin/Globulin Ratio 1.1 (0.8-1.8); Bilirubin, Total 0.8 mg/dL (0.1-1.0); Calcium, Blood 8.9 mg/dL (8.5-10.1); Creatinine, Blood 0.6 mg/dL (0.40-1.00); Globulin, Blood 3.3 g/dL (2.2-4.0); Potassium, Blood 3.4 mmol/L (3.5-5.5)
[2023-10-10 23:36] VITALS: BP 142/66
[2023-10-11] LABS: Influenza A, PCR NEGATIVE (NEGATIVE); Influenza B, PCR NEGATIVE (NEGATIVE); Resp Syncytial Virus, PCR NEGATIVE (NEGATIVE); SARS-Cov-2 (COVID-19) PCR, MMC NEGATIVE (NEGATIVE)
[2023-10-11] MEDS ORDERED: HYDR1TAB94 PO (00:13)
[2023-10-11] MEDS ORDERED: DOC250 PO (00:13)
[2023-10-11] MEDS ORDERED: PRED20 PO (00:13)
[2023-10-11] MEDS ORDERED: LIDO700A20 TOP (00:13)
[2023-10-11] MEDS ORDERED: AZIT250 PO (00:35)
== END 2023-10-11 01:10 | disposition home or self-care (01) ==
LOC: ER 22:20
PROVIDERS: Emergency Medicine
DX: J44.1 Chronic obstructive pulmonary disease with (acute) exacerbation (principal); S16.1XXA Strain of muscle, fascia and tendon at neck level, initial encounter; G44.209 Tension-type headache, unspecified, not intractable; Z79.899 Other long term (current) drug therapy; Z79.82 Long term (current) use of aspirin; Z79.52 Long term (current) use of systemic steroids; I10 Essential (primary) hypertension; E03.9 Hypothyroidism, unspecified; Z87.891 Personal history of nicotine dependence
CPT/HCPCS: 0241U; 71045; 80053; 85025; 93005; 93010; 94640; 94664; 96374; 99285-25; A9270; J1885

== ENCOUNTER → 2024-03-22 | Outpatient (CLI) | payer MEDICARE, BC, OTHER ==
[~2024-03-22] MED LIST changes: +ATOR20 PO; +ATROVENT HFA12.9 GM INH; +CELE100 PO; +DOC250 PO; +HYDHCL25 PO; +HYDR1TAB94 PO; +HYDROCODONE-AC1 EA19 PO; +LIDO700A20 TOP; +ROFLUMILAST500 MCG PO
[2024-03-22 14:22] LABS: Source, Urine Clean Catch
[2024-03-22 15:48] LABS: Bacteria Rare /hpf; Red Blood Cells, Urine Not Seen /hpf (0-2); Squamous Epithelial Cells Few /hpf (Few); White Blood Cells, Urine 0-2 /hpf (0-5)
[2024-03-23 11:35] LABS: Stool Occult Blood Guaiac 1 Neg (Neg)
== END | disposition home or self-care (01) ==
LOC: LAB SHORT 14:15 → LAB 14:15
PROVIDERS: Internal Medicine
DX: R63.4 Abnormal weight loss (principal)
CPT/HCPCS: 81015; 82272

== ENCOUNTER 2024-09-25 15:48 | Inpatient (IN) | payer MEDICARE, BC, OTHER ==
[~2024-09-25] VITALS: Ht 162.6 cm; Wt 53.1 kg
[2024-09-25] MEDS ORDERED: Diltiazem HCl 5 MG / ML 5ML Vial IV ONE ×2 (16:05→17:10)
[2024-09-25 16:28] LABS: BASOPHILS ABSOLUTE AUTO 0.03 K/mm3 (0.00-0.23); BASOPHILS PERCENT AUTO 0 % (0-2); EOSINOPHILS ABSOLUTE AUTO 0.01 K/mm3 (0.00-0.68); EOSINOPHILS PERCENT AUTO 0 % (0-6); Hematocrit 38.3 % (33.0-51.0); Hemoglobin 12.3 g/dL (11.5-16.0); IMMATURE GRAN ABSOLUTE AUTO 0.03 K/mm3 (0.00-0.10); IMMATURE GRAN PERCENT AUTO 0 % (0-1); LYMPHOCYTES PERCENT AUTO 11 % (21-46); MONOCYTES ABSOLUTE AUTO 1.24 K/mm3 (0.16-1.47); MONOCYTES PERCENT AUTO 12 % (4-13); Mean Corpuscular HGB 30.8 pg (26.0-34.0); Mean Corpuscular HGB Conc 32.1 g/dL (31.5-36.5); Mean Corpuscular Volume 96 fL (80-100); Mean Platelet Volume 10.8 fL (9.1-12.4); NEUTROPHILS ABSOLUTE AUTO 7.68 K/mm3 (1.96-9.15); NEUTROPHILS PERCENT AUTO 76 % (41-73); Platelet Count 254 K/mm3 (150-400); RDW Coefficient Variation 12.9 % (11.7-14.2); RDW Standard Deviation 45.7 fL (35.1-46.3); White Blood Cell Count 10.09 K/mm3 (4.00-11.30)
[2024-09-25 16:43] LABS: Bun/Creatinine Ratio 35.2 (12.0-20.0); Calcium, Blood 9.1 mg/dL (8.5-10.1); Creatinine, Blood 0.45 mg/dL (0.40-1.00); Magnesium, Blood 2.4 mg/dL (1.6-2.4); Potassium, Blood 3.5 mmol/L (3.5-5.5)
[2024-09-25 16:58] LABS: Free Thyroxine 1.63 ng/dL (0.70-1.60)
[2024-09-25 17:01] LABS: Thyroid Stimulating Hormone 0.492 uIU/mL (0.360-4.800)
[2024-09-25] MEDS ORDERED: Morphine Sulfate 4 MG/1 ML Injection IV ONE ×4 (17:05→19:50)
[2024-09-25] MEDS ORDERED: NS 500 ML IV SCH (17:10)
[2024-09-25] MEDS ORDERED: ELIQUIS5 M3 PO (18:38)
[2024-09-25] MEDS ORDERED: DILTIAZEM 24HR180 M3 PO (18:38)
[2024-09-25] MEDS ORDERED: MethylPREDNISolone Sod Succ 125 MG Vial IV ONE (19:55)
[2024-09-25] MEDS ORDERED: Ondansetron HCl 2 MG / ML 2ML Vial IV PRN (22:00)
[2024-09-25] MEDS ORDERED: Morphine Sulfate 10 MG/ML 1MLSYR IV PRN (22:00)
[2024-09-25] MEDS ORDERED: D5W-1/2NS KCl 20mEq 1,000 ML IV SCH (22:00)
[2024-09-25] MEDS ORDERED: Ipratropium/Albuterol SulF 2.5-0.5MG/3 ML Amp INH SCH (22:00)
[2024-09-25] MEDS ORDERED: FLU VACC TS2024-25(6MOS UP)/PF 45 MCG/0.5 ML SYRINGE IM ONE (22:00)
[2024-09-25] MEDS ORDERED: Acetaminophen 650 MG Supp PR PRN (22:05)
[2024-09-25] MEDS ORDERED: Metoprolol Tartrate 1 MG/ML 5 ML VIAL IV PRN (22:05)
[2024-09-25] MEDS ORDERED: Tiotropium Bromide 2.5 MCG/ACT MIST INHAL (10 ACT/4 GM) INH SCH (22:35)
[2024-09-25] MEDS ORDERED: Mometasone/Formoterol MDI 100/5 mcg 13 GM INH SCH (22:40)
[2024-09-25 23:30] VITALS: BP 155/111
[2024-09-26] VITALS (20 sets, daily range): BP systolic 99–139; BP diastolic 30–102
[2024-09-26] MEDS ORDERED: MIRT15 PO (00:38)
[2024-09-26] MEDS ORDERED: Colace100 MG PO (00:39)
[2024-09-26] MEDS ORDERED: GUAI600T33 PO (00:40)
[2024-09-26] MEDS ORDERED: CALCIUM 600 +1 EA11 PO (00:42)
--- NOTE | 2024-09-26 01:35 | NUR ---
ASSUMPTION OF CARE PT ARRIVED FROM ED AT 2254 ON 09/25, IN MINOR DISTRESS. PT C/O PAIN AND MILD DYSPNEA. ALERT AND ORIENTED TO ALL. DEMONSTRATES MODERATE ANXIETY. VITAL SIGNS STABLE AFTER TRANSFER TO BED. NSR IN THE 90'S, BP 137/71 (86). RESPIRATIONS REGULAR RATE AND SYMMETRIC, 4L NC PRODUCING 97% SATURATIONS. PT C/O OF MILD SOB. NO AB PAIN, N/V. BANDAGE IN PLACE AROUND NECK- CLEAN AND DRY (WILL NOT REMOVE). C COLLAR IN PLACE ([place] STYLE). PUREWICK PLACED AFTER PICTURES TAKEN OF NON BLANCHABLE DARKENED AREA JUST SUPERIOR TO COCCYX. LEFT LOWER AB INCISION SITE BANDAGE FROM SURGERY REMOVED, PIC TAKEN, AND THEN REPLACED WITH NEW BANDAGE. PT EXPRESSES CONCERN ABOUT NOT BEING ABLE TO TAKE CERTAIN MEDICATIONS DUE TO SWALLOWING DIFFICULTY THAT BROUGHT ABOUT ADMISSION. PAIN MEDS GIVEN AND FLUIDS STARTED. , AGNIESZKA IN ROOM FOR THE EVENING. CALL LIGHT NEARBY WELL.
--- NOTE | 2024-09-26 02:52 | NUR ---
MED UPDATE FROM PATIENT PT INFORMED ME MULTIPLE TIMES THAT SHE CANNOT RESTART ANY BLOOD THINNING MEDICATIONS UNTIL 72 HOURS AFTER DISCHARGE FROM [facility]ICAL [facility] WHICH WAS Thursday09/24/24
[2024-09-26 03:44] LABS: BASOPHILS ABSOLUTE AUTO 0.01 K/mm3 (0.00-0.23); BASOPHILS PERCENT AUTO 0 % (0-2); EOSINOPHILS PERCENT AUTO 0 % (0-6); Hematocrit 36.4 % (33.0-51.0); Hemoglobin 11.4 g/dL (11.5-16.0); IMMATURE GRAN ABSOLUTE AUTO 0.03 K/mm3 (0.00-0.10); IMMATURE GRAN PERCENT AUTO 1 % (0-1); LYMPHOCYTES ABSOLUTE AUTO 0.29 K/mm3 (0.84-5.20); LYMPHOCYTES PERCENT AUTO 6 % (21-46); MONOCYTES ABSOLUTE AUTO 0.07 K/mm3 (0.16-1.47); MONOCYTES PERCENT AUTO 1 % (4-13); Mean Corpuscular HGB 30.4 pg (26.0-34.0); Mean Corpuscular HGB Conc 31.3 g/dL (31.5-36.5); Mean Corpuscular Volume 97 fL (80-100); Mean Platelet Volume 10.7 fL (9.1-12.4); NEUTROPHILS ABSOLUTE AUTO 4.87 K/mm3 (1.96-9.15); NEUTROPHILS PERCENT AUTO 92 % (41-73); Platelet Count 244 K/mm3 (150-400); RDW Coefficient Variation 13.1 % (11.7-14.2); RDW Standard Deviation 46.8 fL (35.1-46.3); Red Blood Cell Count 3.75 M/mm3 (3.80-5.20); White Blood Cell Count 5.27 K/mm3 (4.00-11.30)
[2024-09-26 04:05] LABS: Albumin, Blood 2.8 g/dL (3.4-5.0); Albumin/Globulin Ratio 0.7 (0.8-1.8); Bilirubin, Total 0.5 mg/dL (0.1-1.0); Bun/Creatinine Ratio 44.9 (12.0-20.0); Calcium, Blood 8.4 mg/dL (8.5-10.1); Creatinine, Blood 0.42 mg/dL (0.40-1.00); Magnesium, Blood 2.4 mg/dL (1.6-2.4); Potassium, Blood 4.4 mmol/L (3.5-5.5); Total Protein, Blood 6.8 g/dL (6.4-8.2)
[2024-09-26] MEDS ORDERED: Mometasone/Formoterol MDI 200/5 mcg 13 GM INH SCH (04:30)
[2024-09-26] MEDS ORDERED: Levothyroxine Sodium 0.025 MG Tab PO SCH (06:00)
--- NOTE | 2024-09-26 07:33 | NUR ---
SHIFT SUMMARY PT LYING IN BED SLEEPING. AWOKE FOR MEDS AT 0630 CRYING OUT IN PAIN, ASKED FOR PAIN MEDICATION, WHICH WAS ADMINISTERED. PT ORIENTED TO ALL AND MOVES ALL EXTREMITIES WELL. PT CONTINUES TO DEMONSTRATE AN UNDERCURRENT OF ANXIETY IN REGARDS TO HER CARE. SINUS RHYTHM IN THE 70'S AND STABLE BP SINCE ADMISSION. SATURATIONS ARE >95% ON 2L NC. PT SAYS SHE DOES NOT WANT TO GET DUONEBS PRN, WOULD RATHER HAVE ALBUTEROL ALONE. PT ALSO WORRIED ABOUT HER PHOSPHODIESTERASE INHIBITOR FOR COPD, WHICH IS A PO MED. PT HAS MED AT HOME AND THEY HAVE BEEN ASKED TO BRING IT IN SO THAT IT IS AVAILABLE WHEN SWALLOWING RESUMES. NO IV/INHALATION ALTERNATIVES HAVE BEEN IDENTIFIED. PT HAS HAD LIMITED BMS OVER LAST TWO WEEKS. SAT ON BSC ONCE WITHOUT RESULTS. D51/2 NS W KCL INFUSING INTO RIGHT WRIST IV AT 75ML/HR. LEVOTHYROXINE COULD NOT BE GIVEN DUE TO BEING IN PILL FORM. PROVIDER CALLED- SAID TO HOLD FOR NOW.
[2024-09-26] MEDS ORDERED: ROFLUMILAST 500 MCG TAB PO SCH (09:00)
[2024-09-26] MEDS ORDERED: Lactated Ringer's 1,000 ML IV SCH (15:05)
--- NOTE | 2024-09-26 18:16 | NUR ---
SHIFT SUMMARY PT A&OX4, CALLS APPROPRIATLY. VSS. ON 2L NC AT BASELINE, SATS IN THE 90'S. C COLLAR IN PLACE R/T RECENT SPINAL FUSION. MORPINE 4MG FOR PAIN WITH RELIEF. PT USES BEDSIDE COMMODE W/ SBA. RESISTANT TO REPOSITIONING. IV PATENT IN R ARM. FAILED SWALLOW EVAL THIS SHIFT, KEEP NPO. NO ACUTE EVENTS THIS SHIFT. CALL LIGHT IN REACH.
--- NOTE | 2024-09-26 20:33 | NUR ---
ASSUMED CARE PT IS A&O X4; SPO2 >92% ON 2LNC; MAP >65; RATE NSR 90'S. PT DENIES CP, SOB, AND NAUSEA. RESTING QUIETLY W/ C-COLLAR ON.
[2024-09-26] MEDS ORDERED: MethylPREDNISolone Sod Succ 125 MG Vial IV SCH ×2 (21:00)
[2024-09-26] MEDS ORDERED: Atorvastatin 10 MG Tab PO SCH (21:00)
[2024-09-27 03:46] VITALS: BP 134/67
[2024-09-27 03:49] LABS: BASOPHILS ABSOLUTE AUTO 0.01 K/mm3 (0.00-0.23); BASOPHILS PERCENT AUTO 0 % (0-2); EOSINOPHILS PERCENT AUTO 0 % (0-6); Hematocrit 33.5 % (33.0-51.0); Hemoglobin 10.6 g/dL (11.5-16.0); IMMATURE GRAN ABSOLUTE AUTO 0.01 K/mm3 (0.00-0.10); IMMATURE GRAN PERCENT AUTO 0 % (0-1); LYMPHOCYTES ABSOLUTE AUTO 0.28 K/mm3 (0.84-5.20); LYMPHOCYTES PERCENT AUTO 5 % (21-46); MONOCYTES ABSOLUTE AUTO 0.38 K/mm3 (0.16-1.47); MONOCYTES PERCENT AUTO 7 % (4-13); Mean Corpuscular HGB 30.5 pg (26.0-34.0); Mean Corpuscular HGB Conc 31.6 g/dL (31.5-36.5); Mean Corpuscular Volume 97 fL (80-100); Mean Platelet Volume 10.3 fL (9.1-12.4); NEUTROPHILS ABSOLUTE AUTO 4.76 K/mm3 (1.96-9.15); NEUTROPHILS PERCENT AUTO 88 % (41-73); Platelet Count 256 K/mm3 (150-400); RDW Coefficient Variation 13.4 % (11.7-14.2); RDW Standard Deviation 47.2 fL (35.1-46.3); Red Blood Cell Count 3.47 M/mm3 (3.80-5.20); White Blood Cell Count 5.44 K/mm3 (4.00-11.30)
[2024-09-27 04:10] LABS: Bun/Creatinine Ratio 57.6 (12.0-20.0); Calcium, Blood 8.3 mg/dL (8.5-10.1); Creatinine, Blood 0.4 mg/dL (0.40-1.00); Potassium, Blood 3.9 mmol/L (3.5-5.5)
--- NOTE | 2024-09-27 05:59 | NUR ---
SHIFT SUMMARY PT REMAINS A&O X4; SPO2 >92% ON 2-4LNC (TITRATING W/ EXERTION; BASELINE PER PT). PT AMBULATED TO BEDSIDE COMMODE ONCE THIS EVENING W/ SBA. DYSPNEIC W/ EXERTION. BOTH DRESSINGS REMAIN C/D/I. C-COLLAR ON WHOLE SHIFT. TREATED PAIN ONCE THIS EVENING PER EMAR. NO ACUTE EVENTS THIS EVENING.
[2024-09-27 08:25] VITALS: BP 142/66
[2024-09-27 12:00] VITALS: BP 132/61
[2024-09-27 16:29] VITALS: BP 115/87
[2024-09-27 20:00] VITALS: BP 145/64
--- NOTE | 2024-09-27 20:18 | NUR ---
ASSUMED CARE PT IS A&O X4, SPO2 >92% ON 2LNC; MAP >65; HR 80'S. NG TUBE IN PLACE W/ TUBE FEEDS AT 25MLS/HR. DRESSINGS C/D/I. C-COLLAR IN PLACE. RESTING QUIETLY W/ AT BEDSIDE AT THIS TIME. RED SPUTUM IN SUCTION CANISTER W/ PT STATING IT'S FROM BLOODY NOSE DURING NG TUBE INSERTION.
[2024-09-27] MEDS ORDERED: MethylPREDNISolone Sod Succ 125 MG Vial IV SCH (21:00)
[2024-09-27] MEDS ORDERED: Apixaban 5 MG Tab PT SCH (21:00)
[2024-09-27] MEDS ORDERED: Atorvastatin 10 MG Tab PT SCH (21:00)
[2024-09-28 03:10] VITALS: BP 156/67
--- NOTE | 2024-09-28 03:23 | NUR ---
TRANSFER PT TRANSFERED W/ MEDS AND BELONGINGS BY PCU STAFF. REPORT GIVEN TO TOSHIA.
[2024-09-28] MEDS ORDERED: Levothyroxine Sodium 0.025 MG Tab PT SCH (06:00)
[2024-09-28 08:58] VITALS: BP 156/84
[2024-09-28] MEDS ORDERED: ROFLUMILAST 500 MCG TAB PT SCH (09:00)
[2024-09-28 11:42] VITALS: BP 150/70
[2024-09-28] MEDS ORDERED: Magnesium Hydroxide Conc 10 ML UDC PT PRN (14:25)
[2024-09-28] MEDS ORDERED: Docusate Sodium 100 MG UDC PT PRN (14:25)
[2024-09-28] MEDS ORDERED: Thiamine HCl 100 MG Tab PT SCH (14:25)
[2024-09-28] MEDS ORDERED: Bisacodyl 10 MG Supp PR PRN (14:25)
[2024-09-28] MEDS ORDERED: Multivitamins-Minerals Liquid 15 ML Oral Syringe PT SCH (14:30)
[2024-09-28 15:15] VITALS: BP 158/78
--- NOTE | 2024-09-28 17:19 | NUR ---
SHIFT SUMMARY A&Ox4, CALLS AND COMMUNICATES NEEDS APPROPRIATELY. BP STABLE, SINUS 90'S, DENIES CP/PRESSURE. SpO2> 92% ON 2L WHILE AT REST, 3L WITH ACTIVITY, DENIES SOB. 1 ASSIST TO BSC, CONTINENT OF URINE AND BOWEL. NECK BRACE IN PLACE. DOBHOFF REMAINED PATENT, TUBE FEED AT 45mls/hr GOAL IS 60mls/HR. MANAGED PTs PAIN PER EMAR. NO OTHER EVENTS, WILL REPORT TO ONCOMING RN.
[2024-09-28 19:42] VITALS: BP 159/85
[2024-09-28 23:45] VITALS: BP 153/75
[2024-09-29 03:55] VITALS: BP 157/82
[2024-09-29 04:37] LABS: BASOPHILS ABSOLUTE AUTO 0.01 K/mm3 (0.00-0.23); BASOPHILS PERCENT AUTO 0 % (0-2); EOSINOPHILS PERCENT AUTO 0 % (0-6); Hematocrit 35.7 % (33.0-51.0); Hemoglobin 11.3 g/dL (11.5-16.0); IMMATURE GRAN ABSOLUTE AUTO 0.24 K/mm3 (0.00-0.10); IMMATURE GRAN PERCENT AUTO 2 % (0-1); LYMPHOCYTES ABSOLUTE AUTO 0.42 K/mm3 (0.84-5.20); LYMPHOCYTES PERCENT AUTO 4 % (21-46); MONOCYTES ABSOLUTE AUTO 0.81 K/mm3 (0.16-1.47); MONOCYTES PERCENT AUTO 8 % (4-13); Mean Corpuscular HGB 30.8 pg (26.0-34.0); Mean Corpuscular HGB Conc 31.7 g/dL (31.5-36.5); Mean Corpuscular Volume 97 fL (80-100); Mean Platelet Volume 10.3 fL (9.1-12.4); NEUTROPHILS ABSOLUTE AUTO 8.82 K/mm3 (1.96-9.15); NEUTROPHILS PERCENT AUTO 86 % (41-73); Platelet Count 331 K/mm3 (150-400); RDW Coefficient Variation 13.6 % (11.7-14.2); RDW Standard Deviation 48.6 fL (35.1-46.3); Red Blood Cell Count 3.67 M/mm3 (3.80-5.20)
[2024-09-29 04:54] LABS: Albumin, Blood 2.7 g/dL (3.4-5.0); Albumin/Globulin Ratio 0.8 (0.8-1.8); Bilirubin, Total 0.5 mg/dL (0.1-1.0); Bun/Creatinine Ratio 65.2 (12.0-20.0); Calcium, Blood 9.4 mg/dL (8.5-10.1); Creatinine, Blood 0.35 mg/dL (0.40-1.00); Globulin, Blood 3.3 g/dL (2.2-4.0); Magnesium, Blood 1.9 mg/dL (1.6-2.4); Phosphorus, Blood 3.2 mg/dL (2.5-4.9); Potassium, Blood 4.3 mmol/L (3.5-5.5)
--- NOTE | 2024-09-29 06:27 | NUR ---
SHIFT SUMMARY PT HEMODYNAMICALLY STABLE. TUBE FEEDS CHANGED AND INFUSING PER NEW ORDERS. TF HELD THIS AM FOR LEVOTHYROXINE ADMINISTRATION PER ORDERS, STOPPED AT 0545. NO ACUTE EVENTS OVERNIGHT.
[2024-09-29 07:57] VITALS: BP 164/90
[2024-09-29 11:50] VITALS: BP 178/109
[2024-09-29] MEDS ORDERED: dilTIAZem HCL 60 MG TAB PT SCH (12:25)
[2024-09-29 12:37] VITALS: BP 153/81
[2024-09-29 16:25] VITALS: BP 152/67
--- NOTE | 2024-09-29 18:30 | NUR ---
SHIFT SUMMARY: PT IS A&OX4, ANXIOUS BUT COOPERATIVE WITH CARE. HTN SYS >160, MD AWARE, PT'S HOME CARDIZEM DOSE RESTARTED. PER TELEMETRY PT IS SR 80-90 S, OCCASIONALLY TACHY WITH ACTIVITY. 02 SATS 94% ON 2-3L NC. AFEBRILE. C/O PAIN 8/10 IN HER C-SPINE AND LEFT HIP, MEDICATED PER EMAR WITH 2MG IV MORPHINE. C-COLLAR REMAINS IN PLACE. TOLERATING A THIN, CLEAR LIQUID DIET, POOR PO INTAKE. NG TUBE FEEDING AT GOAL OF 35ML/HR. X1 ASSIST TO BSC. VOIDING LARGE AMOUNTS OF CLEAR, LIGHT YELLOW URINE. BMX1 THIS SHIFT. PT HAS MEDICAL FLOOR STATUS. CALLS APPROPRIATELY AND IS ABLE TO ADVOCATE NEEDS EFFECTIVELY. BED IN LOWEST POSITION, CALL LIGHT WITHIN REACH. PT IS ABLE TO MAKE NEEDS KNOWN.
[2024-09-29 19:35] VITALS: BP 166/89
[2024-09-29] MEDS ORDERED: PredniSONE 20 MG Tab PT SCH (21:00)
[2024-09-29] MEDS ORDERED: Mirtazapine 15 MG Tab PT SCH (21:00)
[2024-09-30 04:21] VITALS: BP 152/80
--- NOTE | 2024-09-30 05:05 | NUR ---
PT TRANSFER PT TRANSFERRING TO ROOM 342. REPORT GIVEN TO OLAYINKA DUCKWORTH. TUBE FEEDING STOPPED @ 0510 IN ANTICIPATION FOR SYNTHROID ADMINISTRATION VIA FEEDING TUBE. RN INSTRUCTED TO PAUSE TUBE FEEDS FOR AN HOUR BEFORE AND AN HOUR AFTER SYNTHROID PER ORDERS IN PT CHART.
--- NOTE | 2024-09-30 06:09 | NUR ---
SHIFT SUMMARY; PATIENT ARRIVED AT 0525 VIA BED, BEDS SWAPPED OUT. HER NG FEEDING IS STOPPED SINCE 0507. WILL GIVE THYROID MED AT 0607.
[2024-09-30 07:31] VITALS: BP 151/69
[2024-09-30] MEDS ORDERED: Morphine Sulfate 4 MG/1 ML Injection IV PRN (10:50)
[2024-09-30] MEDS ORDERED: Albuterol 2.5 MG/3 ML VIAL INH PRN (12:10)
[2024-09-30 12:38] LABS: Magnesium, Blood 1.7 mg/dL (1.6-2.4); Phosphorus, Blood 3.4 mg/dL (2.5-4.9); Potassium, Blood 3.7 mmol/L (3.5-5.5)
[2024-09-30 15:17] VITALS: BP 138/65
--- NOTE | 2024-09-30 16:59 | NUR ---
SHIFT SUMMARY: PATIENT IS A&OX4/1 PERSON ASSIST, CALLS APPROPRIATELY, MAKES NEEDS KNOWN. PATIENT CONTINUES TO GET NG TUBE FEED AND CLEAR LIQUID DIET; SPEECH WITH DETERMINE WHETHER OR NOT THE PATIENT WILL/CAN ADVANCE IN DIET. PATIENT IN BED, CALL LIGHT WITHIN REACH, NO SIGNS OR SYMPTOMS OF DISTRESS. PLAN OF CARE ONGOING.
[2024-09-30] MEDS ORDERED: dilTIAZem HCL 60 MG TAB PT SCH (17:00)
[2024-09-30 19:30] VITALS: BP 130/61
[2024-10-01 04:45] VITALS: BP 144/72
[2024-10-01 05:55] LABS: Bun/Creatinine Ratio 45.7 (12.0-20.0); Calcium, Blood 9.7 mg/dL (8.5-10.1); Creatinine, Blood 0.42 mg/dL (0.40-1.00); Magnesium, Blood 1.9 mg/dL (1.6-2.4); Potassium, Blood 4.3 mmol/L (3.5-5.5)
--- NOTE | 2024-10-01 06:50 | NUR ---
Shift Summary Tube feeding continued at 35 ml/hr with no issues. Pt c/o of painful neck, medicated per EMAR and repositioned with pillows. She slept well t/o most of the night. No acute changes.
[2024-10-01 07:55] VITALS: BP 157/83
[2024-10-01 12:49] VITALS: BP 128/62
[2024-10-01 13:12] LABS: Base Excess Venous 19.2 mmol/L; Bicarbonate Venous 39.6 mmol/L (24.0-30.0); PCO2 Venous 68.4 mmHg (38-42); pH Blood Venous 7.41 (7.34-7.37)
[2024-10-01 14:51] VITALS: BP 158/66
--- NOTE | 2024-10-01 17:14 | NUR ---
SHIFT SUMMARY: PATIENT IS NOW ABLE TO DRINK CLEAR LIQUIDS FROM A CUP. TOLERATING WELL. CONTINUES TO RECEIVE NG TUBE FEED; TOLERATING WELL. SHE IS IN BED, CALL LIGHT WITHIN REACH, NO SIGNS OR SYMPTOMS OF DISTRESS, PLAN OF CARE ONGOING.
[2024-10-01 21:08] VITALS: BP 121/64
--- NOTE | 2024-10-02 03:15 | NUR ---
SHIFT SUMMARY NG-TUBE FEEDING CONTINUOUS AT 35MLS/HR TOLERATING WELL W/O ANY COMPLAINTS. @HS PT REPORTS HAVING SOME PO CLEAR LIQUIDS FOR DINNER, TOLERATED WELL. HOB>30 DEGREES AT ALL TIMES. PT C/O 6/10 PAIN IN CERVICAL AREA POST OP, MEDICATED WITH PRN 2MG MORPHINE IV WIHT GOOD EFFECTIVNESS. @HS BY THE BEDSIDE, PT COOPERATIVE WITH CARE, PLEASANT. O2 @2L VIA NASAL CANNULA, SAT'S>94%. Q6 BG @2000: 135. NO ACUTE EVENTS DURING THIS SHIFT. BED AT THE LOWEST POSITION, CALL LIGHT W/I REACH. PT IS ABLE TO MAKE HER NEEDS KNOWN.
[2024-10-02 06:44] VITALS: BP 135/61
[2024-10-02 07:41] VITALS: BP 148/72
--- NOTE | 2024-10-02 08:00 | NUR ---
ASSUMED CARE OF PATIENT. C-COLLAR IN PLACE. SUCTION AT BEDSIDE FOR SELF-SUCTIONING. CALL LIGHT HAD FALLEN OFF OF BED. SALINE LOCKED RIGHT WRIST. REQUESTED PRN PAIN MEDICATION AND TO TRANSFER TO [facility].
[2024-10-02 14:54] VITALS: BP 116/62
--- NOTE | 2024-10-02 17:39 | NUR ---
END OF SHIFT SUMMARY: A&O4x. PLEASANT AND COOPERATIVE WITH CARE. CALLS APPROPRIATELY AND IS ABLE TO ADVOCATE NEEDS EFFECTIVELY. CONTINENT OF BOWEL AND BLADDER. SBA TO BSC. DOBHOFF PATENT AND RUNNING @ 35mL/hr WITH 75mL FLUSH Q2H. TUBING AND BAGS CHANGED @ 1400. MEDS CRUSHED VIA TUBE AND ONLY CLEAR LIQUIDS PO. MEDICATED c 2MG IV MORPHINE PRN PAIN. , AGNIESZKA, AT BEDSIDE MOST OF DAY. BANDAGE TO LEFT HIP C/D/I. DATED 09/25; DID NOT REMOVE SHE REPORTS SHE HAD BEEN TOLD BY SURGEON TO NOT REMOVE BANDAGE UNLESS SOILED OR DISLODGED. BED IN LOWEST POSITION, CALL LIGHT WITHIN REACH, ALL NEEDS MET. REPORT TO ONCOMING NURSE.
[2024-10-02 20:16] VITALS: BP 125/59
--- NOTE | 2024-10-03 03:47 | NUR ---
SHIFT [facility] NO ACUTE EVENTS DURING THIS SHIFT. Q6 BG @2000: 146. PT CONTINUES ON NG-TUBE FEEDING ORDERED 35MLS/HR, FLUSHES 75MLS Q2HRS. MEDICATED WITH PRN IV 2MG MORPHINE FOR C/O 6/10 NECKPAIN. O2 SAT'S>96% ON 2L O2 VIA NASAL CANNULA. PT SELF SUCTIONING SPUTUM WITH MARCIA TOWNSEND. @HS PT'S BY THE BEDSIDE. PT IS A/O X4, ABLE TO MAKE HER NEEDS KNOWN AND COOPERATIVE WITH CARE. PT WEARING CERVICAL COLLAR, REPOSITIONED WITH PILLOWS.
[2024-10-03 04:47] VITALS: BP 118/80
[2024-10-03 07:33] VITALS: BP 120/62
[2024-10-03 09:20] LABS: BASOPHILS ABSOLUTE AUTO 0.02 K/mm3 (0.00-0.23); BASOPHILS PERCENT AUTO 0 % (0-2); EOSINOPHILS ABSOLUTE AUTO 0.01 K/mm3 (0.00-0.68); EOSINOPHILS PERCENT AUTO 0 % (0-6); Hematocrit 37.5 % (33.0-51.0); IMMATURE GRAN PERCENT AUTO 3 % (0-1); LYMPHOCYTES ABSOLUTE AUTO 1.22 K/mm3 (0.84-5.20); LYMPHOCYTES PERCENT AUTO 8 % (21-46); MONOCYTES ABSOLUTE AUTO 1.04 K/mm3 (0.16-1.47); MONOCYTES PERCENT AUTO 7 % (4-13); Mean Corpuscular HGB 30.9 pg (26.0-34.0); Mean Corpuscular Volume 97 fL (80-100); Mean Platelet Volume 10.3 fL (9.1-12.4); NEUTROPHILS ABSOLUTE AUTO 13.17 K/mm3 (1.96-9.15); NEUTROPHILS PERCENT AUTO 83 % (41-73); Platelet Count 325 K/mm3 (150-400); RDW Coefficient Variation 13.8 % (11.7-14.2); RDW Standard Deviation 48.3 fL (35.1-46.3); Red Blood Cell Count 3.88 M/mm3 (3.80-5.20); White Blood Cell Count 15.86 K/mm3 (4.00-11.30)
[2024-10-03 09:33] LABS: Albumin, Blood 2.9 g/dL (3.4-5.0); Bilirubin, Total 0.4 mg/dL (0.1-1.0); Bun/Creatinine Ratio 40.5 (12.0-20.0); Calcium, Blood 9.8 mg/dL (8.5-10.1); Creatinine, Blood 0.44 mg/dL (0.40-1.00); Potassium, Blood 3.9 mmol/L (3.5-5.5); Total Protein, Blood 5.9 g/dL (6.4-8.2)
[2024-10-03] MEDS ORDERED: Morphine Sulfate 20 MG/1ML 1 ML Oral Syringe SL PRN (09:35)
[2024-10-03] MEDS ORDERED: Acetaminophen 160MG / 5ML 10.15 UDC PT PRN (09:35)
[2024-10-03 13:25] VITALS: BP 137/63
--- NOTE | 2024-10-03 16:21 | NUR ---
PT INSTRUCTED ON S/S OF ABD DISCOMFORT TO REPORT WHILE GIVING BOLUS FEED OF JEVITY 1.2. PT V/U. PT GIVEN JEVITY 1.2 VIA DOBHOFF. PT TOLERATED 175 MLS OF JEVITY BEFORE STATING "I FEEL FULL, LETS STOP THERE." FLUSHED WITH 30 ML WATER PRIOR TO AND AFTER FEED. PT INSTRUCTED ON AMOUNT OF JEVITY AND ENSURE SHE NEEDS TO TAKE IN PER DAY TO MEET DIETARY NEEDS. UNFORTUNATELY SPOUSE WAS NOT PRESENT FOR INSTRUCTION HE HAD GONE HOME TO WAIT FOR SUPPLIES TO ARRIVE TO THEIR HOUSE PER PT EMERALD. PT TOLERATED BOLUS FEED OF 175 MLS JEVITY AT THIS TIME.
[2024-10-03 16:25] VITALS: BP 131/58
--- NOTE | 2024-10-03 16:28 | NUR ---
CONTINUOUS TF STOPPED ONE HOUR PRIOR TO STARTING BOLUS FEED.
--- NOTE | 2024-10-03 19:17 | NUR ---
SHIFT SUMMARY: PT IS A/O X 4, SBA TO CHAIR. PT PAIN MANAGED WITH ROXANOL 5 MG THROUGHOUT THE DAY. PT IS PLEASANT AND COOPERATIVE. PT ADMITS TO HAVING ANXIETY REGARDING DISCHARGE HOME TO CARE FOR SELF. PT SPOUSE WAS NOT HERE TO BE INSTRUCTED ON TUBE FEEDING. PT DID TOLERATE BOLUS FEED OF JEVITY 1.2 175 MLS AT LUNCH TIME. PT UP TO CHAIR THROUGHOUT THE DAY. PT DRINKING CLEAR LIQUIDS WELL. DRINKING ALL HER ENSURES. PT EDUCATED ON NUTRITION GOALS. PT TO WAIT FORDINNER TF ONCE SPOUSE ARRIVES BACK HERE TONIGHT. PT SELF SUCTIONS WHEN SHE COUGHS UP PHLEGM.
[2024-10-03 20:03] VITALS: BP 130/62
[2024-10-03] MEDS ORDERED: Enoxaparin 60 MG/0.6 ML SYR SC SCH (21:00)
--- NOTE | 2024-10-04 00:25 | NUR ---
PT EDUCATION: PT AND HER ; @ THIS POOL TECHNICIAN PROVIDED PRINTED INFORMATION REGARDING PEG-TUBE INSERTION AND CARE. BY THE BEDSIDE. TOGETHER WATCHED A VIDEO R/T PEG TUBE PLACEMENT AND CARE INSTRUCTIONS WITH THE PT AND HER . PROVIDED THE FOLLOWING PT EDUCATION TO PT AND HER : - DEMONSTRATED HOW TO CRUSH AND ADMINISTER MEDICATIONS VIA NG-TUBE, - HOW TO BOLUS FEED JEVITY 1.2 ORDERED VIA NG-TUBE, - HOW TO FLUSH THE NG TUBE WITH H20, - POSSIBLE COMPLICATIONS WHEN ADMINISTERING JEVITY, H20, AND MEDICATIONS, - IMPORTANCE OF PAIN MANAGMENT, - ASPIRATION PRECAUTIONS, CORRECT PT POSITIONING, - CLEANING OF TUBE FEEDING SYRINGES, AND EQUIPMENT. OUTCOME: PT AND RE-VERBALIZED UNDERSTANDING OF THE CONTINUING EDUCATION. RE-DEMONSTRATED NG-TUBE FEEDING TO THE PT/. WILL CONTINUE PT EDUCATION UNTIL D/C.
--- NOTE | 2024-10-04 03:04 | NUR ---
SHIFT SUMMARY NO ACUTE OVERNIGHT EVENTS. AT HS THIS TIMBER SUPERVISOR PROVIDED PT AND FAMILY EDUCATION R/T NG-TUBE BOLUS FEEDING AND MEDICATION ADMINISTRATION. PT'S ABLE TO REDEMONSTRATE. SEE PREVIOUS NOTE OF THE PT EDUCATION. PT C/O 04/13 NECK PAIN, MEDICATED WITH ROXYNOL 5MG PRN ORDERED. PT REPORTS EFFECTIVE. MIDNIGHT Q6HR B. NO PO INTAKE DURING THIS SHIFT. PT CONTINUES ON CLEAR LIQUID DIET. AT HS, 8Z JEVITY ADMINISTERED VIA NG-TUBE ORDERED WITH FLUSHES A BOLUS FEED. REPOSITIONED IN BED. PT WEARING CERVICAL COLLAR, AND SELF SUCTIONS WITH MARCIA TOWNSEND. PT IS A&O X4, ABLE TO ADVOCATE FOR HERSELF, COOPERATIVE WITH CARE. BED AT THE LOWEST POSITION, CALL LIGHT W/I REACH.
[2024-10-04 03:59] VITALS: BP 121/68
[2024-10-04 07:29] VITALS: BP 138/56
[2024-10-04 14:07] VITALS: BP 136/68
[2024-10-04 15:19] VITALS: BP 119/53
[2024-10-04 16:41] VITALS: BP 124/52
--- NOTE | 2024-10-04 18:28 | NUR ---
SHIFT SUMMARY: PT IS A/O X 4, SBA WITH TRANSFERS. PT UP TO CHAIR MOST OF TODAY. PT DECLINED JEVITY THROUGH NG TUBE THIS MORNING DUE TO FEELING TOO FULL WITH CLEAR ENSURE. REQUESTED TO WAIT UNTIL AFTER HER MODIFIED BARIUM SWALLOW TEST. ONCE SHE CAME BACK PT WAS PLACED ON MODIFIED TEXTURE DIET AND PREFERED TO EAT RATHER THAN GET JEVITY. PT ATE A APPPLE SAUCE AND YOGURT AND TOLERATED WELL. SHE WAS ABLE TO TAKE HER PILLS WHOLE WITH APPLESAUCE WITHOUT CHOKING. PT IS USING SUCTION LESS AND SWALLOWING HER SECRETIONS NOW. PT HAD PAIN TO BACK AND NECK. ROXANOL AND TYLENOL HAS BEEN EFFECTIVE IN TREATING PAIN. PT WISHES TO HAVE LIQUID MEDICATIONS CHANGED TO PILL FORM DUE TO TASTE AND REPORTING THE LIQUID TYLENOL ESPINOZA THROAT SHE IS SWALLOWING. PT EATING DINNER AT THIS TIME AND DOING WELL.
[2024-10-04 19:36] VITALS: BP 128/68
[2024-10-04] MEDS ORDERED: Apixaban 5 MG Tab PO SCH (21:00)
[2024-10-05 03:20] VITALS: BP 134/51
--- NOTE | 2024-10-05 06:52 | NUR ---
SHIFT SUMMARY PT SLEPT THROUGH NIGHT ONLY WAKING TO STAFF WALKING INTO HER ROOM. PT STATES SHE IS FEELING WELL THIS AM. CALL LIGHT WITHIN REACH. WILL RELAY TO DAY SHIFT.
[2024-10-05 07:15] VITALS: BP 123/56
[2024-10-05] MEDS ORDERED: Acetaminophen 325 MG TABLET PO PRN (08:10)
[2024-10-05] MEDS ORDERED: PredniSONE 20 MG Tab PT SCH (09:00)
[2024-10-05 10:24] VITALS: BP 121/64
--- NOTE | 2024-10-05 10:45 | NUR ---
ALFREDO'Hunter NG TUBE ON 10/05/24 AT 10:45
[2024-10-05 13:03] VITALS: BP 139/67
[2024-10-05 15:37] VITALS: BP 122/47
--- NOTE | 2024-10-05 17:50 | NUR ---
PATIENT IS ALERT AND ORIENTED AND COOPERATIVE WITH CARE. NG TUBE DISCONTINUED THIS SHIFT. ST REASSESSED THE PATIENT TODAY, NO CHANGES TO HER DIET. PATIENT IS TOLERATING HER SOFT DIET WELL. SUCTIONS HERSELF PRN. ASKS QUESTIONS REGARDING HER CARE. HER HAS BEEN AT THE BEDSIDE THIS SHIFT. PAIN MED PER EMAR FOR NECK AND BACK PAIN. UP TO THE CHAIR AND BSC WITH 1PA. ON 2L O2 VIA NC. WILL CONTINUE TO MONITOR
[2024-10-05 19:43] VITALS: BP 123/52
[2024-10-06 04:12] VITALS: BP 128/58
--- NOTE | 2024-10-06 06:58 | NUR ---
SHIFT SUMMARY AT START OF SHIFT, PT SITTING UP IN BED WITH AT BEDSIDE. PT EXPRESSED DESIRE TO GET TO SLEEP EARLY. PT MEDICATED PER EMAR FOR 2100 MEDS, AND RESTING. PT SLEEPING SOUNDLY WITHOUT SIGNS OF DISTRESS. PT EXPRESSED NEED FOR HER HOME MEDICATION TO BE COUNTED FOR HER WITH NEXT ADMINISTRATION, SO THAT IT DOES NOT RUN OUT BEFORE BEING REFILLID.
[2024-10-06 07:37] VITALS: BP 121/51
[2024-10-06] MEDS ORDERED: Multivitamins-Minerals Liquid 15 ML Oral Syringe PO SCH (09:00)
--- NOTE | 2024-10-06 09:00 | NUR ---
pt sitting up in her chair eating breakfast, a/ox4, pleasant and cooperative with care, follows commands well, denies pain at this time, has cervical neck brace in place for recent cervical fusion, lungs are very dim t/o, resp even and unlabored, no cough noted, is currently on 2liters 02 via n/c, which is her baseline, hrr, trace edema noted to b/l le, ppp+1, cap refill <3 sec, vs stable, afebrile, piv to rfa site is clear and patent, btx4, abd flat soft nontender, voids without diff skin c/w/d, rich beckford, call light in reach.
[2024-10-06] MEDS ORDERED: Multivitamins 1 Tab PO SCH (10:00)
[2024-10-06] MEDS ORDERED: DULCOLAX400 MG/5 M PO (10:38)
[2024-10-06] MEDS ORDERED: MULVITA PO (10:38)
[2024-10-06] MEDS ORDERED: Prednisone10 MG PO (10:40)
[2024-10-06] MEDS ORDERED: B-1100 M1 PO (10:41)
--- NOTE | 2024-10-06 13:47 | NUR ---
DISCHARGE REVIEWED WITH PT . IV PULLED INTACT. NO TELE. PT VERBALIZED UNDERSTANDING MEDS AND INST. PT TO DRESS SELF
--- NOTE | 2024-10-06 14:01 | NUR ---
PT WHEELED TO DOODR AT 1400 WITH AIDE.
== END 2024-10-06 14:00 | disposition home health service (06) | DRG 919 ==
LOC: ER 15:48 → MEDS 22:26 → PCU 22:26 → ICUE 22:26 → PCU 09-28 02:36 → MEDS 09-30 05:27
PROVIDERS: Emergency Medicine; Internal Medicine; ADMIT Student in an Organized Health Care Education/Training Program
DX: K91.873 Postprocedural seroma of a digestive system organ or structure following other procedure (principal); J96.21 Acute and chronic respiratory failure with hypoxia; J96.22 Acute and chronic respiratory failure with hypercapnia; J44.1 Chronic obstructive pulmonary disease with (acute) exacerbation; E44.0 Moderate protein-calorie malnutrition; Y83.8 Other surgical procedures as the cause of abnormal reaction of the patient, or of later complication, without mention of misadventure at the time of the procedure; E03.9 Hypothyroidism, unspecified; I48.0 Paroxysmal atrial fibrillation; I10 Essential (primary) hypertension; F41.1 Generalized anxiety disorder; M81.0 Age-related osteoporosis without current pathological fracture; Z98.1 Arthrodesis status; Z87.891 Personal history of nicotine dependence; Z79.890 Hormone replacement therapy; Z79.891 Long term (current) use of opiate analgesic; Z79.01 Long term (current) use of anticoagulants; Z79.899 Other long term (current) drug therapy; Z79.51 Long term (current) use of inhaled steroids; Z91.018 Allergy to other foods; Z68.20 Body mass index [BMI] 20.0-20.9, adult
CPT/HCPCS: 36415; 70491; 71045; 71260; 74230; 80048; 80053; 82803; 82947; 83735; 84100; 84132; 84295; 84439; 84443; 84484; 85025; 85379; 92526; 92610; 92611; 93005; 93010; 94640; 94664; 94760; 94762; 96361; 96374-59; 96375-59; 96376-59; 97110; 97162; 97530; 99285-25; A9270; J1650; J2270; J2919; J7030; J7120; J7512; Q9967

== ENCOUNTER → 2024-11-21 | Outpatient (CLI) | payer MEDICARE, BC, OTHER ==
[~2024-11-21] MED LIST changes: +B-1100 M1 PO; +CALCIUM 600 +1 EA11 PO; +Colace100 MG PO; +DILTIAZEM 24HR180 M3 PO; +DULCOLAX400 MG/5 M PO; +ELIQUIS5 M3 PO; +MIRT15 PO; +MULVITA PO; +Prednisone10 MG PO
[2024-11-21 22:41] LABS: Alanine Aminotransfer (ALT/SGP 23 U/L (12-78); Albumin, Blood 3.2 g/dL (3.4-5.0); Albumin/Globulin Ratio 0.9 (0.8-1.8); Alk Phos 62 U/L (50-136); Anion Gap 10 mmol/L (3-11); Aspartate Aminotrans (AST/SGOT 30 U/L (12-37); Bilirubin, Direct <0.1 mg/dL (0.0-0.3); Bilirubin, Indirect Unable to Calculate mg/dL (0.1-0.7); Bilirubin, Total 0.5 mg/dL (0.1-1.0); Blood Urea Nitrogen 11 mg/dL (8-24); Bun/Creatinine Ratio 29.8 (12.0-20.0); CO2, Blood 32 mmol/L (21-32); Calcium, Blood 9.2 mg/dL (8.5-10.1); Chloride, Blood 99 mmol/L (98-108); Creatinine, Blood 0.37 mg/dL (0.40-1.00); Globulin, Blood 3.6 g/dL (2.2-4.0); Glomerular Filtration Rate 103 (60-); Glucose, Blood 101 mg/dL (70-99); Potassium, Blood 4.4 mmol/L (3.5-5.5); Sodium, Blood 137 mmol/L (136-145); Total Protein, Blood 6.8 g/dL (6.4-8.2)
== END ==
LOC: LAB SHORT 13:22 → LAB 13:22
PROVIDERS: Internal Medicine
DX: I10 Essential (primary) hypertension (principal); E78.5 Hyperlipidemia, unspecified
CPT/HCPCS: 80048; 80076